=== PATIENT | male | born 1960 | race African-American/Black ===

== ENCOUNTER 2016-04-15 13:10 | Inpatient (IN) | payer OTHER ==
[2016-04-15 13:59] VITALS: BMI 20.2
--- NOTE | 2016-04-15 17:33 | HP ---
CIWA Score - CIWA Score Nausea/Vomitin-Mild Nausea/No Vomiting Muscle Tremors: 4-Moderate,w/Arms Extend Anxiety: 4-Mod. Anxious/Guarded Agitation: 4-Moderately Restless Paroxysmal Sweats: 1-Minimal Palms Moist Orientation: 1-Uncertain about Date Tacttile Disturbances: 0-None Auditory Disturbances: 0-None Visual Disturbances: 0-None Headache: 2-Mild CIWA-Ar Total Score: 17 Admission ROS BHS - HPI Chief Complaint: withdrawal sx Allergies/Adverse Reactions: Allergies Allergy/AdvReac Type Severity Reaction Status Date / Time No Known Allergies Allergy Verified 04/15/16 15:19 History of Present Illness: 56 years old male with long history of alcohol nicotine dependence, hiv denies mental illness, longest sobriety 5 years is admitted to detox Exam Limitations: No Limitations - Ebola screening Have you traveled outside of the country in the last 21 days: No Have you had contact with anyone from an Ebola affected area: No Have you been sick,other than usual withdrawal symptoms: No Do you have a fever: No - Review of Systems Constitutional: Chills, Loss of Appetite, Changes in sleep, Unintentional Wgt. Loss EENT: reports: No Symptoms Reported Respiratory: reports: No Symptoms reported Cardiac: reports: No Symptoms Reported GI: reports: Nausea, Poor Appetite, Poor Fluid Intake, Abdominal cramping : reports: No Symptoms Reported Musculoskeletal: reports: No Symptoms Reported Integumentary: reports: Rash (fungal feet) Neuro: reports: Tremors Endocrine: reports: No Symptoms Reported Hematology: reports: No Symptoms Reported Psychiatric: reports: Judgement Intact, Mood/Affect Appropiate Other Systems: Reviewed and Negative Patient History - Patient Medical History Hx Anemia: No Hx Asthma: No Hx Chronic Obstructive Pulmonary Disease (COPD): No Hx Cancer: No Hx Cardiac Disorders: No Hx Congestive Heart Failure: No Hx Hypertension: No Hx Hypercholesterolemia: No Hx Pacemaker: No HX Cerebrovascular Accident: No Hx Seizures: Yes (denies) Hx Dementia: No Hx Diabetes: No Hx Gastrointestinal Disorders: No Hx Liver Disease: No (has hepatitis b treated x 1 ) Hx Genitourinary Disorders: No Hx Sexually Transmitted Disorders: No Hx Renal Disease (ESRD): No Hx Thyroid Disease: No Hx Human Immunodeficiency Virus (HIV): Yes Hx Hepatitis C: No Hx Depression: Yes (no longer has depression) Hx Suicide Attempt: No Hx Bipolar Disorder: No Hx Schizophrenia: No - Patient Surgical History Past Surgical History: Yes Hx Neurologic Surgery: No Hx Cataract Extraction: No Hx Cardiac Surgery: No Hx Lung Surgery: No Hx Breast Surgery: No Hx Breast Biopsy: No Hx Abdominal Surgery: No Hx Appendectomy: No Hx Cholecystectomy: No Hx Genitourinary Surgery: No Hx Orthopedic Surgery: No Other Surgical History: anal fistula 2006 Anesthesia Reaction: No - PPD History Previous Implant?: No Documented Results: Negative w/o proof Implanted On Prior [facility] Admission?: No PPD to be Administered?: Yes - Reproductive History Patient : No - Smoking Cessation Smoking history: Current every day smoker Have you smoked in the past 12 months: Yes Aproximately how many cigarettes per day: 6 Cigars Per Day: 0 Hx Chewing Tobacco Use: No Initiated information on smoking cessation: Yes 'Breaking Loose' booklet given: 04/15/16 - Substance & Tx. History Hx Alcohol Use: Yes Hx Substance Use: Yes Substance Use Type: Alcohol, Cocaine - Substances Abused Alcohol Route: Oral Frequency: Daily Amount used: 1 pint volka Age of first use: 15 Date of Last Use: 04/15/16 Family Disease History - Family Disease History Family Disease History: Diabetes: Grandparent, Mother, Other: Father () Admission Physical Exam S - Vital Signs Vital Signs: Vital Signs - 24 hr 04/15/16 13:57 Temperature 98.1 F Pulse Rate 89 Respiratory 20 Rate Blood Pressure 124/66 - Physical General Appearance: Yes: Appropriately Dressed, Mild Distress, Thin, Tremorous, Irritable, Sweating, Anxious HEENTM: Yes: Hearing grossly Normal, Normal ENT Inspection, Normocephalic, Normal Voice Respiratory: Yes: Chest Non-Tender, Lungs Clear, Normal Breath Sounds, No Respiratory Distress, No Accessory Muscle Use Neck: Yes: Supple, Trachea in good position Breast: Yes: Breasts Symetrical Cardiology: Yes: Regular Rhythm, Regular Rate, S1, S2 Abdominal: Yes: Non Tender, Soft Genitourinary: Yes: Within Normal Limits Back: Yes: Normal Inspection Musculoskeletal: Yes: full range of Motion, Gait Steady Extremities: Yes: Normal Inspection (dry), Normal Range of Motion, Non-Tender, Tremors Neurological: Yes: Fully Oriented, Alert, Motor Strength 5/5, Normal Mood/Affect , Normal Response Integumentary: Yes: Dry, Warm Lymphatic: Yes: Within Normal Limits - Diagnostic (1) Alcohol dependence with uncomplicated withdrawal Current Visit: Yes Status: Acute (2) Nicotine dependence Current Visit: Yes Status: Acute Qualifiers: Nicotine product type: cigarettes Substance use status: in withdrawal Qualified Code(s): F17.213 - Nicotine dependence, cigarettes, with withdrawal (3) Toenail fungus Current Visit: Yes Status: Acute (4) Weight loss Current Visit: Yes Status: Acute (5) HIV (human immunodeficiency virus infection) Current Visit: Yes Status: Chronic Comment: patient dose not have his own medication with him (6) Neuropathy Current Visit: Yes Status: Chronic Comment: hands (7) Dry skin Current Visit: Yes Status: Acute Comment: eucerin Cleared for Admission [facility] - Detox or Rehab [facility] Level of Care: Medically Managed Detox Regimen/Protocol: Librium [facility] Breath Alcohol Content Breath Alcohol Content: 0 Urine Drug Screen - Results Drug Screen Negative: No Urine Drug Screen Results: JUAN-Cocaine
[2016-04-15] MEDS ORDERED: MAGNESIUM HYDROX 2400MG/30ML ORAL SUSPENSION 30 ML CUP PO PRN (17:39)
[2016-04-15] MEDS ORDERED: diphenhydrAMINE HCL 50 MG CAPSULE PO PRN (17:39)
[2016-04-15] MEDS ORDERED: MAG HYDROX/AL HYDROX/SIMETH 30 ML UNIT-DOSE CUP PO PRN (17:39)
[2016-04-15] MEDS ORDERED: chlordiazePOXIDE HCL 25 MG CAPSULE PO PRN (17:39)
[2016-04-15] MEDS ORDERED: hydrOXYzine PAMOATE 50 MG CAPSULE (FP) PO PRN (17:39)
[2016-04-15] MEDS ORDERED: IBUPROFEN 400 MG TABLET (FP) PO PRN (17:39)
[2016-04-15] MEDS ORDERED: ACETAMINOPHEN 325 MG TABLET (FP) PO PRN (17:39)
[2016-04-15] MEDS ORDERED: MAGNESIUM CITRATE 300 ML BOTTLE PO PRN (17:39)
[2016-04-15] MEDS ORDERED: NICOTINE POLACRILEX 2 MG GUM BC PRN (17:39)
[2016-04-15] MEDS ORDERED: MENTHOL/PHENOL 1 EACH UD MM PRN (17:39)
[2016-04-15] MEDS ORDERED: P-EPHED 60MG/TRIPROLIDI 2.5MG TABLET PO PRN (17:39)
[2016-04-15] MEDS ORDERED: guaiFENesin/D-METHORPHAN HB 10 ML UNIT-DOSE CUPS PO PRN (17:39)
[2016-04-15] MEDS ORDERED: LOPERAMIDE HCL 2 MG CAPSULE PO PRN (17:39)
[2016-04-15] MEDS ORDERED: COLLOIDAL OATMEAL 1 BAR EACH TP PRN (17:52)
[2016-04-15] MEDS: THIAMINE HCL 100 MG TABLET (FP) PO SCH (22:12)
[2016-04-15] MEDS: chlordiazePOXIDE HCL 25 MG CAPSULE PO SCH (22:12)
[2016-04-15] MEDS: CLOTRIMAZOLE 1% CREAM 15 GM TUBE TP SCH (22:13)
[2016-04-15] MEDS: MINERAL OIL/PETROLAT/WATER TOPICAL CREAM 454 GM JAR TP SCH (22:14)
[2016-04-16 03:21] LABS: URINE APPEARANCE CLEAR; URINE BILIRUBIN NEGATIVE (NEGATIVE); URINE BLOOD NEGATIVE (NEGATIVE); URINE COLOR YELLOW; URINE GLUCOSE (UA) NEGATIVE (NEGATIVE); URINE KETONE NEGATIVE (NEGATIVE); URINE LEUK ESTERASE NEGATIVE (NEGATIVE); URINE NITRITE NEGATIVE (NEGATIVE); URINE PROTEIN NEGATIVE (NEGATIVE); URINE UROBILINOGEN NEGATIVE E.U./dl (0.2-1.0)
[2016-04-16] MEDS: chlordiazePOXIDE HCL 25 MG CAPSULE PO SCH ×3 (05:39→22:41)
--- NOTE | 2016-04-16 09:32 | EKG ---
Test Reason : Blood Pressure : / mmHG Vent. Rate : 065 BPM Atrial Rate : 065 BPM P-R Int : 182 ms QRS Dur : 088 ms QT Int : 380 ms P-R-T Axes : -15 -09 -15 degrees QTc Int : 395 ms NORMAL SINUS RHYTHM MODERATE VOLTAGE CRITERIA FOR LVH, MAY BE NORMAL VARIANT EARLY REPOLARIZATION POOR DATA QUALITY, INTERPRETATION MAY BE ADVERSELY AFFECTED ABNORMAL ECG NO PREVIOUS ECGS AVAILABLE Confirmed by ARLENE MOTT, LIUDMILA ([id number]) on 04/16/2016 9:32:10 AM Referred By: Confirmed By:LIUDMILA JACOBS MD
[2016-04-16 10:30] LABS: MCH 29.3 pg (25.7-33.7); MCHC 33.6 g/dl (32.0-35.9); MEAN CELL VOLUME 87.2 fl (80-96); MEAN PLT VOLUME 10.1 fl (7.5-11.1); PLATELET COUNT 139 K/MM3 (134-434); RDW 14.7 % (11.9-15.9); WHITE BLOOD COUNT 6.8 K/mm3 (4.0-10.0)
[2016-04-16] MEDS: PRENATAL VITAMINS W/ FOLIC ACID TABLET (FP) PO SCH (10:40)
[2016-04-16] MEDS: CLOTRIMAZOLE 1% CREAM 15 GM TUBE TP SCH ×2 (10:40→22:41)
[2016-04-16] MEDS: NICOTINE 14 MG/24 HOURS TOPICAL PATCH TD SCH (10:40)
[2016-04-16 11:45] LABS: ALBUMIN 3.8 g/dl (3.4-5.0); ANION GAP 9 (8-16); BILIRUBIN,TOTAL 0.3 mg/dL (0.2-1.0); CALCIUM 9.4 mg/dL (8.5-10.1); CO2 30 mmol/L (21-32); CREATININE 0.8 mg/dL (0.7-1.3); GLUCOSE,RANDOM 83 mg/dL (74-106); SGOT/AST 19 U/L (15-37); SGPT/ALT 28 U/L (12-78); TOT PROT 7.2 g/dl (6.4-8.2)
[2016-04-16 11:46] LABS: ALK PHOS 67 U/L (45-117)
[2016-04-16] MEDS ORDERED: PNEUMOC 13-VAL CONJ-DIP CRM/PF 0.5 ML DISP.SYRIN IM ONE (12:00)
--- NOTE | 2016-04-16 12:16 | PN ---
S CIWA - CIWA Score Nausea/Vomitin-No Nausea/No Vomiting Muscle Tremors: 4-Moderate,w/Arms Extend Anxiety: 3 Agitation: 4-Moderately Restless Paroxysmal Sweats: 3 Orientation: 0-Oriented Tacttile Disturbances: 0-None Auditory Disturbances: 0-None Visual Disturbances: 0-None Headache: 0-None Present CIWA-Ar Total Score: 14 BHS Progress Note (SOAP) Subjective: ANXIETY,TREMORS,SWEATING,INTERRUPTED SLEEP,RESTLESS Objective: 04/16/16 12:15 Vital Signs - 8 hr 04/16/16 04/16/16 06:20 10:50 Temperature 96.6 F L 98.1 F Pulse Rate 79 76 Respiratory 18 18 Rate Blood Pressure 120/77 119/80 Laboratory Tests 04/16/16 04/16/16 04/16/16 02:59 06:10 06:10 WBC 6.8 RBC 4.28 Hgb 12.5 Hct 37.3 MCV 87.2 MCHC 33.6 RDW 14.7 Plt Count 139 MPV 10.1 Sodium 140 Potassium 4.1 Chloride 101 Carbon Dioxide 30 Anion Gap 9 BUN 12 Creatinine 0.8 Creat Clearance w eGFR > 60 Random Glucose 83 Calcium 9.4 Total Bilirubin 0.3 AST 19 ALT 28 Alkaline Phosphatase 67 Total Protein 7.2 Albumin 3.8 Urine Color Yellow Urine Appearance Clear Urine pH 6.0 Ur Specific [place] 1.024 Urine Protein Negative Urine Glucose (UA) Negative Urine Ketones Negative Urine Blood Negative Urine Nitrite Negative Urine Bilirubin Negative Urine Urobilinogen Negative Ur Leukocyte Esterase Negative LABS NOTED Assessment: 04/16/16 12:15 WITHDRAWAL SX. Plan: CONTINUE DETOX
[2016-04-16] MEDS: THIAMINE HCL 100 MG TABLET (FP) PO SCH (22:41)
[2016-04-16] MEDS: MINERAL OIL/PETROLAT/WATER TOPICAL CREAM 454 GM JAR TP SCH (22:42)
[2016-04-17] MEDS: chlordiazePOXIDE HCL 25 MG CAPSULE PO SCH ×3 (05:38→17:21)
--- NOTE | 2016-04-17 09:45 | EKG ---
Test Reason : Blood Pressure : / mmHG Vent. Rate : 064 BPM Atrial Rate : 064 BPM P-R Int : 164 ms QRS Dur : 090 ms QT Int : 368 ms P-R-T Axes : 069 067 072 degrees QTc Int : 379 ms SINUS RHYTHM WITH PREMATURE ATRIAL COMPLEXES INCOMPLETE RBBB Confirmed by LIUDMILA JACOBS MD ([id number]) on 04/17/2016 9:45:10 AM Referred By: Confirmed By:LIUDMILA JACOBS MD
[2016-04-17] MEDS: NICOTINE 14 MG/24 HOURS TOPICAL PATCH TD SCH (10:27)
[2016-04-17] MEDS: PRENATAL VITAMINS W/ FOLIC ACID TABLET (FP) PO SCH (10:27)
[2016-04-17] MEDS: CLOTRIMAZOLE 1% CREAM 15 GM TUBE TP SCH ×2 (10:27→22:33)
--- NOTE | 2016-04-17 14:36 | PN ---
S CIWA - CIWA Score Nausea/Vomitin-Mild Nausea/No Vomiting Muscle Tremors: 4-Moderate,w/Arms Extend Anxiety: 4-Mod. Anxious/Guarded Agitation: 4-Moderately Restless Paroxysmal Sweats: No Perspiration Orientation: 0-Oriented Tacttile Disturbances: 1-Very Mild Itch/Numbness Auditory Disturbances: 0-None Visual Disturbances: 0-None Headache: 2-Mild CIWA-Ar Total Score: 16 BHS Progress Note (SOAP) Subjective: Sweating, nausea, tremor, interrupted sleep Objective: 04/17/16 14:33 Last Vital Signs Temp Pulse Resp BP Pulse Ox 97.0 F L 83 18 110/74 04/17/16 12:50 04/17/16 12:50 04/17/16 12:50 04/17/16 12:50 Laboratory Tests 04/16/16 04/16/16 04/16/16 02:59 06:10 06:10 WBC 6.8 RBC 4.28 Hgb 12.5 Hct 37.3 MCV 87.2 MCHC 33.6 RDW 14.7 Plt Count 139 MPV 10.1 Sodium 140 Potassium 4.1 Chloride 101 Carbon Dioxide 30 Anion Gap 9 BUN 12 Creatinine 0.8 Creat Clearance w eGFR > 60 Random Glucose 83 Calcium 9.4 Total Bilirubin 0.3 AST 19 ALT 28 Alkaline Phosphatase 67 Total Protein 7.2 Albumin 3.8 Urine Color Yellow Urine Appearance Clear Urine pH 6.0 Ur Specific [place] 1.024 Urine Protein Negative Urine Glucose (UA) Negative Urine Ketones Negative Urine Blood Negative Urine Nitrite Negative Urine Bilirubin Negative Urine Urobilinogen Negative Ur Leukocyte Esterase Negative RPR Titer 04/16/16 06:10 WBC RBC Hgb Hct MCV MCHC RDW Plt Count MPV Sodium Potassium Chloride Carbon Dioxide Anion Gap BUN Creatinine Creat Clearance w eGFR Random Glucose Calcium Total Bilirubin AST ALT Alkaline Phosphatase Total Protein Albumin Urine Color Urine Appearance Urine pH Ur Specific [place] Urine Protein Urine Glucose (UA) Urine Ketones Urine Blood Urine Nitrite Urine Bilirubin Urine Urobilinogen Ur Leukocyte Esterase RPR Titer Nonreactive Labs noted Assessment: 04/17/16 14:34 Withdrawal symptoms Plan: Continue detox
[2016-04-17] MEDS: THIAMINE HCL 100 MG TABLET (FP) PO SCH (22:33)
[2016-04-17] MEDS: chlordiazePOXIDE 5 MG CAPSULE PO SCH (22:33)
[2016-04-17] MEDS: MINERAL OIL/PETROLAT/WATER TOPICAL CREAM 454 GM JAR TP SCH (22:34)
[2016-04-18] MEDS: chlordiazePOXIDE 5 MG CAPSULE PO SCH ×3 (05:20→17:14)
--- NOTE | 2016-04-18 09:24 | PN ---
BHS Progress Note (SOAP) Subjective: sweating,interrupted sleep,restless Objective: 04/18/16 09:23 Vital Signs - 8 hr 04/18/16 04/18/16 03:30 06:11 Temperature 97.9 F Pulse Rate 75 Respiratory 18 13 Rate Blood Pressure 113/77 Laboratory Tests 04/16/16 04/16/16 04/16/16 02:59 06:10 06:10 WBC 6.8 RBC 4.28 Hgb 12.5 Hct 37.3 MCV 87.2 MCHC 33.6 RDW 14.7 Plt Count 139 MPV 10.1 Sodium 140 Potassium 4.1 Chloride 101 Carbon Dioxide 30 Anion Gap 9 BUN 12 Creatinine 0.8 Creat Clearance w eGFR > 60 Random Glucose 83 Calcium 9.4 Total Bilirubin 0.3 AST 19 ALT 28 Alkaline Phosphatase 67 Total Protein 7.2 Albumin 3.8 Urine Color Yellow Urine Appearance Clear Urine pH 6.0 Ur Specific [place] 1.024 Urine Protein Negative Urine Glucose (UA) Negative Urine Ketones Negative Urine Blood Negative Urine Nitrite Negative Urine Bilirubin Negative Urine Urobilinogen Negative Ur Leukocyte Esterase Negative RPR Titer 04/16/16 06:10 WBC RBC Hgb Hct MCV MCHC RDW Plt Count MPV Sodium Potassium Chloride Carbon Dioxide Anion Gap BUN Creatinine Creat Clearance w eGFR Random Glucose Calcium Total Bilirubin AST ALT Alkaline Phosphatase Total Protein Albumin Urine Color Urine Appearance Urine pH Ur Specific [place] Urine Protein Urine Glucose (UA) Urine Ketones Urine Blood Urine Nitrite Urine Bilirubin Urine Urobilinogen Ur Leukocyte Esterase RPR Titer Nonreactive labs noted Assessment: 04/18/16 09:24 withdrawal sx. Plan: continue detox
[2016-04-18] MEDS: NICOTINE 14 MG/24 HOURS TOPICAL PATCH TD SCH (10:38)
[2016-04-18] MEDS: PRENATAL VITAMINS W/ FOLIC ACID TABLET (FP) PO SCH (10:38)
[2016-04-18] MEDS: CLOTRIMAZOLE 1% CREAM 15 GM TUBE TP SCH ×2 (10:38→22:07)
[2016-04-18] MEDS: chlordiazePOXIDE HCL 10 MG CAPSULE PO SCH (22:07)
[2016-04-18] MEDS: THIAMINE HCL 100 MG TABLET (FP) PO SCH (22:07)
[2016-04-18] MEDS: MINERAL OIL/PETROLAT/WATER TOPICAL CREAM 454 GM JAR TP SCH (22:07)
[2016-04-19] MEDS: chlordiazePOXIDE HCL 10 MG CAPSULE PO SCH ×2 (05:40→11:32)
--- NOTE | 2016-04-19 09:53 | DS ---
[facility] Detox Discharge Summary Admission Date: 04/15/16 Discharge Date: 04/19/16 - History Present History: Alcohol Dependence Pertinent Past History: HIV infection - Physical Exam Results Vital Signs: Vital Signs Temperature 98.6 F 04/19/16 06:22 Pulse Rate 84 04/19/16 06:22 Respiratory Rate 18 04/19/16 06:22 Blood Pressure 113/74 04/19/16 06:22 O2 Sat by Pulse Oximetry (%) Pertinent Admission Physical Exam Findings: Withdrawal sx. Laboratory Last Values WBC 6.8 K/mm3 (4.0-10.0) 04/16/16 06:10 RBC 4.28 M/mm3 (4.00-5.60) 04/16/16 06:10 Hgb 12.5 GM/dL (11.7-16.9) 04/16/16 06:10 Hct 37.3 % (35.4-49) 04/16/16 06:10 MCV 87.2 fl (80-96) 04/16/16 06:10 MCHC 33.6 g/dl (32.0-35.9) 04/16/16 06:10 RDW 14.7 % (11.9-15.9) 04/16/16 06:10 Plt Count 139 K/MM3 (134-434) 04/16/16 06:10 MPV 10.1 fl (7.5-11.1) 04/16/16 06:10 Sodium 140 mmol/L (136-145) 04/16/16 06:10 Potassium 4.1 mmol/L (3.5-5.1) 04/16/16 06:10 Chloride 101 mmol/L (98-107) 04/16/16 06:10 Carbon Dioxide 30 mmol/L (21-32) 04/16/16 06:10 Anion Gap 9 (8-16) 04/16/16 06:10 BUN 12 mg/dL (7-18) 04/16/16 06:10 Creatinine 0.8 mg/dL (0.7-1.3) 04/16/16 06:10 Creat Clearance w eGFR > 60 (>60) 04/16/16 06:10 Random Glucose 83 mg/dL (74-106) 04/16/16 06:10 Calcium 9.4 mg/dL (8.5-10.1) 04/16/16 06:10 Total Bilirubin 0.3 mg/dL (0.2-1.0) 04/16/16 06:10 AST 19 U/L (15-37) 04/16/16 06:10 ALT 28 U/L (12-78) 04/16/16 06:10 Alkaline Phosphatase 67 U/L (45-117) 04/16/16 06:10 Total Protein 7.2 g/dl (6.4-8.2) 04/16/16 06:10 Albumin 3.8 g/dl (3.4-5.0) 04/16/16 06:10 Urine Color Yellow 04/16/16 02:59 Urine Appearance Clear 04/16/16 02:59 Urine pH 6.0 (5.0-8.0) 04/16/16 02:59 Ur Specific [place] 1.024 (1.001-1.035) 04/16/16 02:59 Urine Protein Negative (NEGATIVE) 04/16/16 02:59 Urine Glucose (UA) Negative (NEGATIVE) 04/16/16 02:59 Urine Ketones Negative (NEGATIVE) 04/16/16 02:59 Urine Blood Negative (NEGATIVE) 04/16/16 02:59 Urine Nitrite Negative (NEGATIVE) 04/16/16 02:59 Urine Bilirubin Negative (NEGATIVE) 04/16/16 02:59 Urine Urobilinogen Negative E.U./dl (0.2-1.0) 04/16/16 02:59 Ur Leukocyte Esterase Negative (NEGATIVE) 04/16/16 02:59 RPR Titer Nonreactive (NONREACTIVE) 04/16/16 06:10 labs noted - Treatment Hospital Course: Detox Protocol Followed, Detoxed Safely, Responded well, Discharged Condition Good, Rehab Referral Accepted - Medication Discharge Medications: Ambulatory Orders Elviteg/Katherin/Emtric/Tenofo Ala [Genvoya Tablet] 1 tablet PO DAILY 04/15/16 Folic Acid 4 mg PO DAILY 04/15/16 Sertraline HCl [Zoloft] 50 mg PO DAILY 04/15/16 Trazodone HCl 50 mg PO HS 04/15/16 Vitamin B Complex 1 tablet PO DAILY 04/15/16 - Diagnosis (1) Alcohol dependence with uncomplicated withdrawal Current Visit: Yes Status: Acute (2) Nicotine dependence Current Visit: Yes Status: Acute Qualifiers: Nicotine product type: cigarettes Substance use status: in withdrawal Qualified Code(s): F17.213 - Nicotine dependence, cigarettes, with withdrawal (3) Toenail fungus Current Visit: Yes Status: Acute (4) HIV (human immunodeficiency virus infection) Current Visit: Yes Status: Chronic - AMA Did Patient Leave Against Medical Advice: No
[2016-04-19] MEDS: PRENATAL VITAMINS W/ FOLIC ACID TABLET (FP) PO SCH (10:20)
[2016-04-19] MEDS: NICOTINE 14 MG/24 HOURS TOPICAL PATCH TD SCH (10:20)
[2016-04-19] MEDS: CLOTRIMAZOLE 1% CREAM 15 GM TUBE TP SCH (10:21)
[2016-04-19 11:42] VITALS: BP 122/73; PULSE 74; TEMP 97
== END 2016-04-19 13:15 | disposition home or self-care (01) | DRG 776 ==
LOC: YASAS 13:10 → Y3N 18:11
PROVIDERS: ADMIT Internal Medicine; ATTEND Internal Medicine
PROC: HZ2ZZZZ Detoxification Services for Substance Abuse Treatment (ICD-10-PCS; principal; 2016-04-19)
DX: F17.213 Nicotine dependence, cigarettes, with withdrawal (principal); Z21 Asymptomatic human immunodeficiency virus [HIV] infection status; B35.1 Tinea unguium; G62.9 Polyneuropathy, unspecified; L85.3 Xerosis cutis; R63.4 Abnormal weight loss; Z68.20 Body mass index [BMI] 20.0-20.9, adult
CPT/HCPCS: 36415; 80053; 81003; 85027; 86593; 90670; 93005; 93010

== ENCOUNTER 2019-10-19 11:45 | Inpatient (IN) | payer OTHER ==
--- NOTE | 2019-10-19 16:21 | BHS.RME ---
Substance Use & Tx History - Substance Use History Alcohol Substance amount: 1 pint of vodka Frequency of use: Daily Substance route: Oral Date of Last Use: 10/18/19 Cocaine-Crack Substance amount: 100$ Frequency of use: Daily Substance route: Smoking Date of Last Use: 10/18/19 - Last Treatment Date of last treatment: [facility] 06/2019 Where was last treatment: Detox Physical/Psych/Mental Status - Behavior Eye Contact: Normal - Cooperativeness Cooperativeness: Cooperative - Thinking Thought Processes: Logical Thought content: Future oriented - Physical Health Problems Is patient presently having any pain?: No Does patient presently have any injuries (include location): No Does patient currently have a fever: No CIWA Nausea/Vomitin Muscle Tremors: 3 Anxiety: 2 Agitation: 2 Paroxysmal Sweats: 1-Minimal Palms Moist Orientation: 0-Oriented Tacttile Disturbances: 1-Very Mild Itch/Numbness Auditory Disturbances: 0-None Visual Disturbances: 0-None Headache: 2-Mild CIWA-Ar Total Score: 13
--- NOTE | 2019-10-19 16:32 | HP ---
CIWA Score Nausea/Vomitin Muscle Tremors: 3 Anxiety: 2 Agitation: 2 Paroxysmal Sweats: 1-Minimal Palms Moist Orientation: 0-Oriented Tacttile Disturbances: 1-Very Mild Itch/Numbness Auditory Disturbances: 0-None Visual Disturbances: 0-None Headache: 2-Mild CIWA-Ar Total Score: 13 - Admission Criteria [facility] Guidelines: Admission for Medically Managed Detox: Requires at least one of the followin. CIWA greater than 12 2. Seizures within the past 24 hours 3. Delirium tremens within the past 24 hours 4. Hallucinations within the past 24 hours 5. Acute intervention needed for co occurring medical disorder 6. Acute intervention needed for co occurring psychiatric disorder 7. Severe withdrawal that cannot be handled at a lower level of care (continued vomiting, continued diarrhea, abnormal vital signs) requiring intravenous medication and/or fluids 8. 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 Infectious Disease: Yes: HIV (since 07/22/1996) Additional Past Medical History: anal fislula in 10/2006 - Past Surgical History Additional Past Surgical History: anal fistula in 10/2006 - Smoking History Smoking history: Current every day smoker Have you smoked in the past 12 months: Yes Aproximately how many cigarettes per day: 10 - Alcohol/Substance Use Hx Alcohol Use: Yes History of Substance Use: reports: Cocaine Date of Last Use: 10/18/19 - Social History Usual Living Arrangement: Yes: Alone Do you think of yourself as: Straight/Heterosexual ADL: Support Services Occupation: disability History of Recent Travel: No Other Social History: unemployed on disability,nicotine dependence,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,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 Admission ROS BHS - HPI Chief Complaint: i need help to stop drining alcohol,crack Allergies/Adverse Reactions: Allergies Allergy/AdvReac Type Severity Reaction Status Date / Time No Known Allergies Allergy Verified 10/19/19 16:59 History of Present Illness: this 59 years old male with alcohol dependence with crack abused,seeking detox Exam Limitations: No Limitations - Ebola screening Have you traveled outside of the country in the last 21 days: No Have you had contact with anyone from an Ebola affected area: No Have you been sick,other than usual withdrawal symptoms: No Do you have a fever: No - Review of Systems Constitutional: Loss of Appetite, Malaise, Night Sweats, Changes in sleep, Weakness EENT: reports: Nose Congestion Respiratory: reports: No Symptoms reported Cardiac: reports: No Symptoms Reported GI: reports: Nausea, Poor Appetite, Poor Fluid Intake : reports: No Symptoms Reported Musculoskeletal: reports: Back Pain, Muscle Pain Integumentary: reports: Dryness Neuro: reports: Headache, Tremors Endocrine: reports: No Symptoms Reported Hematology: reports: No Symptoms Reported Psychiatric: reports: No Sypmtoms Reported, Judgement Intact, Mood/Affect Appropiate, Orientated x3 Other Systems: Reviewed and Negative Patient History - Patient Medical History Hx Anemia: No Hx Asthma: No Hx Chronic Obstructive Pulmonary Disease (COPD): No Hx Cancer: No Hx Cardiac Disorders: No Hx Congestive Heart Failure: No Hx Hypertension: No Hx Hypercholesterolemia: No Hx Pacemaker: No HX Cerebrovascular Accident: No Hx Seizures: No Hx Dementia: No Hx Diabetes: No Hx Gastrointestinal Disorders: No Hx Liver Disease: No Hx Genitourinary Disorders: No Hx Sexually Transmitted Disorders: No Hx Renal Disease (ESRD): No Hx Thyroid Disease: No Hx Human Immunodeficiency Virus (HIV): Yes (since ) Hx Hepatitis C: No Hx Depression: Yes (no longer has depression) Hx Suicide Attempt: No Hx Bipolar Disorder: No Hx Schizophrenia: No Other Medical History: no suicidal,no homicidal - Patient Surgical History Past Surgical History: Yes Hx Neurologic Surgery: No Hx Cataract Extraction: No Hx Cardiac Surgery: No Hx Lung Surgery: No Hx Breast Surgery: No Hx Breast Biopsy: No Hx Abdominal Surgery: No Hx Appendectomy: No Hx Cholecystectomy: No Hx Genitourinary Surgery: No Hx Section: No Hx Orthopedic Surgery: No Other Surgical History: anal fistula 2006 Anesthesia Reaction: No - PPD History Previous Implant?: Yes Documented Results: Negative w/o proof Implanted On Prior R Admission?: Yes Date: 04/17/16 PPD to be Administered?: Yes - Smoking Cessation Smoking history: Current every day smoker Have you smoked in the past 12 months: Yes Aproximately how many cigarettes per day: 10 Cigars Per Day: 0 Hx Chewing Tobacco Use: No Initiated information on smoking cessation: Yes 'Breaking Loose' booklet given: 10/19/19 - Substance & Tx. History Hx Alcohol Use: Yes Hx Substance Use: Yes Substance Use Type: Alcohol, Cocaine Hx Substance Use Treatment: Yes ([facility] in ) - Substances abused Alcohol Substance route: Oral Frequency: Daily Amount used: 1 pint of vodka Age of first use: 14 Date of last use: 10/18/19 Crack Substance route: Smoking Frequency: Daily Amount used: 100$ Age of first use: 26 Date of last use: 11/18/19 Admission Physical Exam [facility] - Vital Signs Vital Signs: t97.8,p82,bp 142/85,r18 - Physical General Appearance: Yes: Moderate Distress, Tremorous, Irritable, Sweating, Anxious HEENTM: Yes: Normal ENT Inspection, RADHA, Pharynx Normal, Other (rash left neck itching) Respiratory: Yes: Lungs Clear, Normal Breath Sounds, No Respiratory Distress Neck: Yes: Within Normal Limits, Supple, Trachea in good position, Other (rash left neck itching) Breast: Yes: Within Normal Limits Cardiology: Yes: Within Normal Limits Abdominal: Yes: Within Normal Limits, Normal Bowel Sounds, Non Tender, Flat, Soft Genitourinary: Yes: Within Normal Limits Back: Yes: Muscle Spasm Musculoskeletal: Yes: Back pain, Muscle Pain Extremities: Yes: Tremors Neurological: Yes: Within Normal Limits, Alert, Motor Strength 5/5 Integumentary: Yes: Dry Lymphatic: Yes: Within Normal Limits - Diagnostic (1) Alcohol dependence with uncomplicated withdrawal Current Visit: No Status: Acute (2) HIV (human immunodeficiency virus infection) Current Visit: No Status: Chronic Comment: patient dose not have his own medication with him (3) Cocaine dependence Current Visit: Yes Status: Acute (4) Weight loss Current Visit: No Status: Acute (5) Syncope Current Visit: Yes Status: Acute Cleared for Admission [facility] - Detox or Rehab [facility] Level of Care: Medically Managed Detox Regimen/Protocol: Librium Inpatient Rehab Admission - Rehab Decision to Admit Inpatient rehab admission?: No
[2019-10-19] MEDS ORDERED: BISMUTH SUBSALICYLATE 524 MG/30 ML UD PO PRN (16:44)
[2019-10-19] MEDS ORDERED: MENTHOL/PHENOL 1 EACH UD MM PRN (16:44)
[2019-10-19] MEDS ORDERED: ACETAMINOPHEN 325 MG TABLET (FP) PO PRN ×2 (16:44)
[2019-10-19] MEDS ORDERED: IBUPROFEN 400 MG TABLET (FP) PO PRN (16:44)
[2019-10-19] MEDS ORDERED: METHOCARBAMOL 500 MG TABLET PO PRN (16:44)
[2019-10-19] MEDS ORDERED: NICOTINE POLACRILEX 2 MG GUM BUC PRN (16:44)
[2019-10-19] MEDS ORDERED: MAG HYDROX/AL HYDROX/SIMETH 30 ML UNIT-DOSE CUP PO PRN (16:44)
[2019-10-19] MEDS ORDERED: MAGNESIUM HYDROX 2400MG/30ML ORAL SUSPENSION 30 ML CUP PO PRN (16:44)
[2019-10-19] MEDS ORDERED: chlordiazePOXIDE HCL 25 MG CAPSULE PO PRN (16:44)
[2019-10-19] MEDS ORDERED: MAGNESIUM CITRATE 300 ML BOTTLE PO PRN (16:44)
[2019-10-19 17:02] VITALS: BMI 16.8
[2019-10-19] MEDS ORDERED: ONDANSETRON *ODT* 4 MG TABLET SL ONE (17:15)
[2019-10-19] MEDS: hydrOXYzine PAMOATE 25 MG CAPSULE (FP) PO SCH ×2 (19:14→23:19)
[2019-10-19] MEDS: chlordiazePOXIDE HCL 25 MG CAPSULE PO SCH (23:19)
[2019-10-19] MEDS: MELATONIN 5 MG TABLETS PO SCH (23:19)
[2019-10-19] MEDS: THIAMINE HCL 100 MG TABLET (FP) PO SCH (23:19)
[2019-10-20] MEDS: chlordiazePOXIDE HCL 25 MG CAPSULE PO SCH ×4 (05:46→22:19)
[2019-10-20] MEDS: hydrOXYzine PAMOATE 25 MG CAPSULE (FP) PO SCH ×5 (05:47→22:20)
[2019-10-20] MEDS: PRENATAL VITAMINS W/ FOLIC ACID TABLET (FP) PO SCH (10:08)
[2019-10-20] MEDS: NICOTINE 7 MG/24 HOURS TOPICAL PATCH TD SCH (10:08)
[2019-10-20 12:31] LABS: HEMATOCRIT 37.5 % (35.4-49); HEMOGLOBIN 12.3 GM/dL (11.7-16.9); MCHC 32.8 g/dl (32.0-35.9); MEAN CELL VOLUME 88.4 fl (80-96); MEAN PLT VOLUME 9.6 fl (7.5-11.1); PLATELET COUNT 127 K/MM3 (134-434); RBC 4.24 M/mm3 (4.00-5.60); RDW 14.1 % (11.9-15.9); WHITE BLOOD COUNT 4.9 K/mm3 (4.0-10.0)
[2019-10-20 12:44] LABS: ALBUMIN 3.2 g/dl (3.4-5.0); BLOOD UREA NITROGEN 10.5 mg/dL (7-18); CALCIUM 8.8 mg/dL (8.5-10.1); POTASSIUM 3.6 mmol/L (3.5-5.1)
[2019-10-20 12:47] LABS: BILIRUBIN,TOTAL 0.3 mg/dL (0.2-1); CREATININE 0.8 mg/dL (0.55-1.3)
--- NOTE | 2019-10-20 14:38 | PN ---
[facility] CIWA - CIWA Score Nausea/Vomitin-Mild Nausea/No Vomiting Muscle Tremors: 2 Anxiety: 2 Agitation: 2 Paroxysmal Sweats: 3 Orientation: 0-Oriented Tacttile Disturbances: 1-Very Mild Itch/Numbness Auditory Disturbances: 0-None Visual Disturbances: 0-None Headache: 0-None Present CIWA-Ar Total Score: 11 BHS Progress Note (SOAP) Subjective: Feels ok, medication is helpful Objective: 10/20/19 14:33 Last Vital Signs Temp Pulse Resp BP Pulse Ox 97.5 F L 74 16 113/72 100 10/20/19 12:25 10/20/19 12:25 10/20/19 12:25 10/20/19 12:25 10/20/19 12:25 Laboratory Tests 10/20/19 10/20/19 10/20/19 07:20 07:20 07:20 WBC 4.9 RBC 4.24 Hgb 12.3 Hct 37.5 MCV 88.4 MCH 29.0 MCHC 32.8 RDW 14.1 Plt Count 127 L MPV 9.6 Sodium 142 Potassium 3.6 Chloride 110 H Carbon Dioxide 30 Anion Gap 2 L BUN 10.5 Creatinine 0.8 Est GFR (CKD-EPI)AfAm 114.93 Est GFR (CKD-EPI)NonAf 99.16 Random Glucose 93 Calcium 8.8 Total Bilirubin 0.3 AST 18 ALT 16 Alkaline Phosphatase 63 Total Protein 7.0 Albumin 3.2 L Syphilis Serology Non-reactive Labs reviewed: plt 127 (low), albumin 3.2 (low) Assessment: 10/20/19 14:38 Withdrawal sxs Noted with thrombocytopenia and hypoalbuminemia Plan: Continue detox Encourage PO water intake Thrombocytopenia: most likely r/t alcoholism, encourage abstinence, follow up with PCP for monitoring Hypoalbuminemia: encourage diet, continue ensure
[2019-10-20] MEDS: THIAMINE HCL 100 MG TABLET (FP) PO SCH (22:19)
[2019-10-20] MEDS: MELATONIN 5 MG TABLETS PO SCH (22:22)
[2019-10-21] MEDS: chlordiazePOXIDE HCL 25 MG CAPSULE PO SCH ×4 (05:49→22:00)
[2019-10-21] MEDS: hydrOXYzine PAMOATE 25 MG CAPSULE (FP) PO SCH (05:49)
[2019-10-21] MEDS ORDERED: hydrOXYzine PAMOATE 25 MG CAPSULE (FP) PO PRN (08:36)
--- NOTE | 2019-10-21 10:39 | PN ---
S CIWA - CIWA Score Nausea/Vomitin-No Nausea/No Vomiting Muscle Tremors: 2 Anxiety: 2 Agitation: 2 Paroxysmal Sweats: 2 Orientation: 0-Oriented Tacttile Disturbances: 0-None Auditory Disturbances: 0-None Visual Disturbances: 0-None Headache: 0-None Present CIWA-Ar Total Score: 8 BHS Progress Note (SOAP) Subjective: sweats interrupted sleep agitation Objective: 10/21/19 10:38 Vital Signs Temperature 97.1 F L 10/21/19 08:57 Pulse Rate 86 10/21/19 08:57 Respiratory Rate 18 10/21/19 08:57 Blood Pressure 107/70 10/21/19 08:57 O2 Sat by Pulse Oximetry (%) 100 10/21/19 05:34 Laboratory Tests 10/19/19 10/20/19 10/20/19 17:20 07:20 07:20 WBC 4.9 RBC 4.24 Hgb 12.3 Hct 37.5 MCV 88.4 MCH 29.0 MCHC 32.8 RDW 14.1 Plt Count 127 L MPV 9.6 Sodium Potassium Chloride Carbon Dioxide Anion Gap BUN Creatinine Est GFR (CKD-EPI)AfAm Est GFR (CKD-EPI)NonAf Random Glucose Calcium Total Bilirubin AST ALT Alkaline Phosphatase Total Protein Albumin Syphilis Serology Non-reactive COVID-19 ([facility]GGIE) Not detected 10/20/19 07:20 WBC RBC Hgb Hct MCV MCH MCHC RDW Plt Count MPV Sodium 142 Potassium 3.6 Chloride 110 H Carbon Dioxide 30 Anion Gap 2 L BUN 10.5 Creatinine 0.8 Est GFR (CKD-EPI)AfAm 114.93 Est GFR (CKD-EPI)NonAf 99.16 Random Glucose 93 Calcium 8.8 Total Bilirubin 0.3 AST 18 ALT 16 Alkaline Phosphatase 63 Total Protein 7.0 Albumin 3.2 L Syphilis Serology COVID-19 (REGGIE) labs noted ambulating no acute distress Assessment: 10/21/19 10:39 withdrawals Plan: continue detox increase fluids
[2019-10-21] MEDS: NICOTINE 7 MG/24 HOURS TOPICAL PATCH TD SCH (10:59)
[2019-10-21] MEDS: PRENATAL VITAMINS W/ FOLIC ACID TABLET (FP) PO SCH (11:00)
[2019-10-21] MEDS ORDERED: BICTEGRAV/EMTRICIT/TENOFOV (BIKTARVY) 50-200-25 MG TABLET PO SCH (14:00)
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
[2019-10-21] MEDS: THIAMINE HCL 100 MG TABLET (FP) PO SCH (22:00)
[2019-10-21] MEDS: MELATONIN 5 MG TABLETS PO SCH (22:00)
[2019-10-22] MEDS ORDERED: chlordiazePOXIDE HCL 10 MG CAPSULE PO PRN
[2019-10-22] MEDS ORDERED: chlordiazePOXIDE HCL 10 MG CAPSULE PO SCH (05:00)
--- NOTE | 2019-10-22 08:59 | DS ---
[facility] Detox Discharge Summary Admission Date: 10/19/19 Discharge Date: 10/22/19 - History Present History: Cocaine Dependence - Physical Exam Results Vital Signs: Vital Signs Temperature 97.5 F L 10/22/19 05:25 Pulse Rate 63 10/22/19 05:25 Respiratory Rate 20 10/22/19 05:25 Blood Pressure 104/65 10/22/19 05:25 O2 Sat by Pulse Oximetry (%) 98 10/22/19 05:25 Pertinent Admission Physical Exam Findings: Laboratory Tests 10/19/19 10/20/19 10/20/19 17:20 07:20 07:20 WBC 4.9 RBC 4.24 Hgb 12.3 Hct 37.5 MCV 88.4 MCH 29.0 MCHC 32.8 RDW 14.1 Plt Count 127 L MPV 9.6 Sodium Potassium Chloride Carbon Dioxide Anion Gap BUN Creatinine Est GFR (CKD-EPI)AfAm Est GFR (CKD-EPI)NonAf Random Glucose Calcium Total Bilirubin AST ALT Alkaline Phosphatase Total Protein Albumin Syphilis Serology Non-reactive COVID-19 (REGGIE) Not detected 10/20/19 07:20 WBC RBC Hgb Hct MCV MCH MCHC RDW Plt Count MPV Sodium 142 Potassium 3.6 Chloride 110 H Carbon Dioxide 30 Anion Gap 2 L BUN 10.5 Creatinine 0.8 Est GFR (CKD-EPI)AfAm 114.93 Est GFR (CKD-EPI)NonAf 99.16 Random Glucose 93 Calcium 8.8 Total Bilirubin 0.3 AST 18 ALT 16 Alkaline Phosphatase 63 Total Protein 7.0 Albumin 3.2 L Syphilis Serology COVID-19 (REGGIE) - Treatment Hospital Course: Detox Protocol Followed, Detoxed Safely, Responded well, Discharged Condition Good, Rehab Referral Accepted - Medication Discharge Medications: Ambulatory Orders Sertraline HCl [Zoloft] 50 mg PO DAILY 04/15/16 traZODone HCL [Trazodone HCl] 50 mg PO HS 04/15/16 Biktarvy 50-200-25 mg Tablet 50 - 200 mg PO DAILY 10/19/19 - Diagnosis (1) Cocaine dependence Current Visit: Yes Status: Chronic Qualifiers: Substance use status: uncomplicated Qualified Code(s): F14.20 - Cocaine dependence, uncomplicated (2) Syncope Current Visit: Yes Status: Acute (3) Alcohol dependence with uncomplicated withdrawal Current Visit: No Status: Resolved (4) Nicotine dependence Current Visit: Yes Status: Chronic Qualifiers: Nicotine product type: cigarettes Substance use status: uncomplicated Qualified Code(s): F17.210 - Nicotine dependence, cigarettes, uncomplicated (5) HIV (human immunodeficiency virus infection) Current Visit: Yes Status: Chronic Qualifiers: HIV symptom status: unspecified Qualified Code(s): B20 - Human immunodeficiency virus [HIV] disease - AMA Did Patient Leave Against Medical Advice: No
--- NOTE | 2019-10-22 09:11 | PN ---
[facility] Progress Note Note: pt is not showing any s/s of withdrawals. Pt states he doesn't drink alcohol and only said that to get into rehab. Pt was made aware and there was no need to be in detox for rehab admission. Pt was given the opportunity to go to rehab today and is interested. Pt will be d/c today and go to rehab today.
[2019-10-22 09:38] VITALS: BP 117/76; PULSE 85; TEMP 96.9
[2019-10-22] MEDS ORDERED: BICTEGRAV/EMTRICIT/TENOFOV (BIKTARVY) 50-200-25 MG TABLET PO SCH (10:00)
[2019-10-22] MEDS: PRENATAL VITAMINS W/ FOLIC ACID TABLET (FP) PO SCH (10:23)
[2019-10-22] MEDS: NICOTINE 7 MG/24 HOURS TOPICAL PATCH TD SCH (10:24)
[2019-10-23] MEDS ORDERED: chlordiazePOXIDE HCL 10 MG CAPSULE PO SCH (05:00)
[2019-10-24] MEDS ORDERED: chlordiazePOXIDE HCL 10 MG CAPSULE PO ONE (05:00)
== END 2019-10-22 11:26 | disposition other institution (70) | DRG 774 ==
LOC: YASAS 11:45 → Y6N 17:04
PROVIDERS: ADMIT Allergy & Immunology; ATTEND Allergy & Immunology
PROC: HZ2ZZZZ Detoxification Services for Substance Abuse Treatment (ICD-10-PCS; principal; 2019-10-19)
DX: F10.230 Alcohol dependence with withdrawal, uncomplicated (principal); F14.20 Cocaine dependence, uncomplicated; F17.210 Nicotine dependence, cigarettes, uncomplicated; Z21 Asymptomatic human immunodeficiency virus [HIV] infection status; D69.6 Thrombocytopenia, unspecified; R77.0 Abnormality of albumin; R21 Rash and other nonspecific skin eruption; R63.4 Abnormal weight loss; Z56.0 Unemployment, unspecified
CPT/HCPCS: 36415; 80053; 85027; 86780; Q0162; U0003

== ENCOUNTER 2020-05-09 19:43 | Inpatient (IN) | payer OTHER ==
[2020-05-09 20:11] VITALS: BMI 17.6
[2020-05-09] MEDS ORDERED: guaiFENesin 200 MG/10 ML 10 ML UNIT-DOSE CUPS PO PRN (22:42)
[2020-05-09] MEDS ORDERED: MAGNESIUM HYDROX 2400MG/30ML ORAL SUSPENSION 30 ML CUP PO PRN (22:42)
[2020-05-09] MEDS ORDERED: LOPERAMIDE HCL 2 MG CAPSULE PO PRN (22:42)
[2020-05-09] MEDS ORDERED: NICOTINE POLACRILEX 2 MG GUM BC PRN (22:42)
[2020-05-09] MEDS ORDERED: MAG HYDROX/AL HYDROX/SIMETH 30 ML UNIT-DOSE CUP PO PRN (22:42)
[2020-05-09] MEDS ORDERED: IBUPROFEN 400 MG TABLET (FP) PO PRN (22:42)
[2020-05-09] MEDS ORDERED: ACETAMINOPHEN 325 MG TABLET (FP) PO PRN (22:42)
[2020-05-09] MEDS ORDERED: MAGNESIUM CITRATE 300 ML BOTTLE PO PRN (22:42)
[2020-05-09] MEDS ORDERED: P-EPHED 60MG/TRIPROLIDI 2.5MG TABLET PO PRN (22:42)
[2020-05-09] MEDS ORDERED: MENTHOL/PHENOL 1 EACH UD MM PRN (22:42)
[2020-05-09] MEDS: MELATONIN 5 MG TABLETS PO SCH (23:32)
[2020-05-10] MEDS: PRENATAL VITAMINS W/ FOLIC ACID TABLET (FP) PO SCH (09:45)
[2020-05-10] MEDS: GABAPENTIN 300 MG CAPSULE PO SCH ×2 (09:45→21:14)
[2020-05-10] MEDS: NICOTINE 21 MG/24 HOURS TOPICAL PATCH TD SCH (09:45)
[2020-05-10] MEDS ORDERED: FLU VACCINE (FLULAVAL) PF 60 MCG/0.5 ML SYRINGE 2020-2021 IM ONE (12:00)
[2020-05-10] MEDS: HYDROCORTISONE 1% TOPICAL OINT 30 GM TUBE TP SCH ×2 (12:11→21:14)
[2020-05-10] MEDS: BICTEGRAV/EMTRICIT/TENOFOV (BIKTARVY) 50-200-25 MG TABLET PO SCH (12:11)
[2020-05-10] MEDS: THIAMINE HCL 100 MG TABLET (FP) PO SCH (21:14)
[2020-05-10] MEDS: MELATONIN 5 MG TABLETS PO SCH (21:14)
[2020-05-11] MEDS: PRENATAL VITAMINS W/ FOLIC ACID TABLET (FP) PO SCH (09:57)
[2020-05-11] MEDS: GABAPENTIN 300 MG CAPSULE PO SCH ×2 (09:57→21:26)
[2020-05-11] MEDS: NICOTINE 21 MG/24 HOURS TOPICAL PATCH TD SCH (09:58)
[2020-05-11] MEDS: BICTEGRAV/EMTRICIT/TENOFOV (BIKTARVY) 50-200-25 MG TABLET PO SCH (09:58)
[2020-05-11] MEDS: HYDROCORTISONE 1% TOPICAL OINT 30 GM TUBE TP SCH ×2 (09:59→21:25)
[2020-05-11 12:15] LABS: POTASSIUM 4.9 mmol/L (3.5-5.1)
[2020-05-11 12:18] LABS: CALCIUM 8.9 mg/dL (8.5-10.1)
[2020-05-11 12:20] LABS: ALBUMIN 3.4 g/dl (3.4-5.0); BLOOD UREA NITROGEN 15.4 mg/dL (7-18)
[2020-05-11 12:22] LABS: CREATININE 0.6 mg/dL (0.55-1.3)
[2020-05-11] MEDS ORDERED: PT OWN MED DRAWER 7, Y5N ONE (12:23)
[2020-05-11 12:24] LABS: BILIRUBIN,TOTAL 0.3 mg/dL (0.2-1); TOT PROT 7.8 g/dl (6.4-8.2)
[2020-05-11 12:26] LABS: HEMOGLOBIN 12.8 GM/dL (11.7-16.9); MCH 28.9 pg (25.7-33.7); MCHC 32.9 g/dl (32.0-35.9); MEAN CELL VOLUME 87.8 fl (80-96); MEAN PLT VOLUME 9.6 fl (7.5-11.1); PLATELET COUNT 156 K/MM3 (134-434); RBC 4.44 M/mm3 (4.00-5.60); RDW 15.3 % (11.9-15.9); WHITE BLOOD COUNT 5.7 K/mm3 (4.0-10.0)
[2020-05-11] MEDS: THIAMINE HCL 100 MG TABLET (FP) PO SCH (21:26)
[2020-05-11] MEDS: MELATONIN 5 MG TABLETS PO SCH (21:26)
[2020-05-12] MEDS: PRENATAL VITAMINS W/ FOLIC ACID TABLET (FP) PO SCH (09:54)
[2020-05-12] MEDS: HYDROCORTISONE 1% TOPICAL OINT 30 GM TUBE TP SCH ×2 (09:54→21:26)
[2020-05-12] MEDS: BICTEGRAV/EMTRICIT/TENOFOV (BIKTARVY) 50-200-25 MG TABLET PO SCH (09:54)
[2020-05-12] MEDS: NICOTINE 21 MG/24 HOURS TOPICAL PATCH TD SCH (09:54)
[2020-05-12] MEDS: GABAPENTIN 300 MG CAPSULE PO SCH ×2 (09:54→21:26)
[2020-05-12] MEDS: MELATONIN 5 MG TABLETS PO SCH (21:26)
[2020-05-12] MEDS: THIAMINE HCL 100 MG TABLET (FP) PO SCH (21:26)
[2020-05-13] MEDS: BICTEGRAV/EMTRICIT/TENOFOV (BIKTARVY) 50-200-25 MG TABLET PO SCH (07:54)
[2020-05-13] MEDS: PRENATAL VITAMINS W/ FOLIC ACID TABLET (FP) PO SCH (10:04)
[2020-05-13] MEDS: NICOTINE 21 MG/24 HOURS TOPICAL PATCH TD SCH (10:04)
[2020-05-13] MEDS: GABAPENTIN 300 MG CAPSULE PO SCH ×2 (10:04→22:00)
[2020-05-13] MEDS: HYDROCORTISONE 1% TOPICAL OINT 30 GM TUBE TP SCH ×2 (10:05→22:01)
[2020-05-13 16:14] LABS: PH,URINE 5.5 (5.0-8.0); URINE APPEARANCE CLEAR; URINE BILIRUBIN NEGATIVE (NEGATIVE); URINE COLOR YELLOW; URINE GLUCOSE (UA) NEGATIVE (NEGATIVE); URINE KETONE NEGATIVE (NEGATIVE); URINE LEUK ESTERASE NEGATIVE (NEGATIVE); URINE NITRITE NEGATIVE (NEGATIVE); URINE PROTEIN NEGATIVE (NEGATIVE); URINE UROBILINOGEN 0.2 mg/dL (0.2-1.0)
[2020-05-13] MEDS: THIAMINE HCL 100 MG TABLET (FP) PO SCH (22:00)
[2020-05-13] MEDS: MELATONIN 5 MG TABLETS PO SCH (22:00)
[2020-05-14] MEDS: BICTEGRAV/EMTRICIT/TENOFOV (BIKTARVY) 50-200-25 MG TABLET PO SCH (07:06)
[2020-05-14] MEDS: PRENATAL VITAMINS W/ FOLIC ACID TABLET (FP) PO SCH (10:08)
[2020-05-14] MEDS: GABAPENTIN 300 MG CAPSULE PO SCH ×2 (10:08→21:30)
[2020-05-14] MEDS: NICOTINE 21 MG/24 HOURS TOPICAL PATCH TD SCH (10:09)
[2020-05-14] MEDS: HYDROCORTISONE 1% TOPICAL OINT 30 GM TUBE TP SCH ×2 (10:09→21:29)
[2020-05-14] MEDS: THIAMINE HCL 100 MG TABLET (FP) PO SCH (21:30)
[2020-05-14] MEDS: MELATONIN 5 MG TABLETS PO SCH (21:30)
[2020-05-15] MEDS: BICTEGRAV/EMTRICIT/TENOFOV (BIKTARVY) 50-200-25 MG TABLET PO SCH (07:16)
[2020-05-15] MEDS: NICOTINE 21 MG/24 HOURS TOPICAL PATCH TD SCH (09:55)
[2020-05-15] MEDS: HYDROCORTISONE 1% TOPICAL OINT 30 GM TUBE TP SCH ×2 (09:55→21:58)
[2020-05-15] MEDS: PRENATAL VITAMINS W/ FOLIC ACID TABLET (FP) PO SCH (09:55)
[2020-05-15] MEDS: GABAPENTIN 300 MG CAPSULE PO SCH ×2 (09:55→21:30)
[2020-05-15] MEDS: THIAMINE HCL 100 MG TABLET (FP) PO SCH (21:30)
[2020-05-15] MEDS: MELATONIN 5 MG TABLETS PO SCH (21:59)
[2020-05-16] MEDS: BICTEGRAV/EMTRICIT/TENOFOV (BIKTARVY) 50-200-25 MG TABLET PO SCH (07:11)
[2020-05-16] MEDS: GABAPENTIN 300 MG CAPSULE PO SCH ×2 (10:14→21:33)
[2020-05-16] MEDS: PRENATAL VITAMINS W/ FOLIC ACID TABLET (FP) PO SCH (10:14)
[2020-05-16] MEDS: NICOTINE 21 MG/24 HOURS TOPICAL PATCH TD SCH (10:14)
[2020-05-16] MEDS: HYDROCORTISONE 1% TOPICAL OINT 30 GM TUBE TP SCH ×2 (10:14→21:34)
[2020-05-16] MEDS: MELATONIN 5 MG TABLETS PO SCH (21:34)
[2020-05-16] MEDS: THIAMINE HCL 100 MG TABLET (FP) PO SCH (21:34)
[2020-05-17] MEDS: BICTEGRAV/EMTRICIT/TENOFOV (BIKTARVY) 50-200-25 MG TABLET PO SCH (07:13)
[2020-05-17] MEDS: GABAPENTIN 300 MG CAPSULE PO SCH ×2 (11:16→21:51)
[2020-05-17] MEDS: HYDROCORTISONE 1% TOPICAL OINT 30 GM TUBE TP SCH ×2 (11:16→21:50)
[2020-05-17] MEDS: NICOTINE 21 MG/24 HOURS TOPICAL PATCH TD SCH (11:17)
[2020-05-17] MEDS: PRENATAL VITAMINS W/ FOLIC ACID TABLET (FP) PO SCH (12:34)
[2020-05-17] MEDS: MELATONIN 5 MG TABLETS PO SCH (21:50)
[2020-05-17] MEDS: THIAMINE HCL 100 MG TABLET (FP) PO SCH (21:51)
[2020-05-18 07:26] VITALS: BP 126/84; PULSE 76; TEMP 97.3
[2020-05-18] MEDS: BICTEGRAV/EMTRICIT/TENOFOV (BIKTARVY) 50-200-25 MG TABLET PO SCH (08:42)
[2020-05-18] MEDS: NICOTINE 21 MG/24 HOURS TOPICAL PATCH TD SCH (09:25)
[2020-05-18] MEDS: PRENATAL VITAMINS W/ FOLIC ACID TABLET (FP) PO SCH (09:25)
[2020-05-18] MEDS: GABAPENTIN 300 MG CAPSULE PO SCH (09:25)
[2020-05-18] MEDS: HYDROCORTISONE 1% TOPICAL OINT 30 GM TUBE TP SCH (09:26)
== END 2020-05-18 10:00 | disposition home or self-care (01) | DRG 772 ==
LOC: YASAS 19:43 → Y5N 05-10 00:40
PROVIDERS: ADMIT Allergy & Immunology; ATTEND Allergy & Immunology
PROC: HZ42ZZZ Group Counseling for Substance Abuse Treatment, Cognitive-Behavioral (ICD-10-PCS; principal; 2020-05-10)
DX: F10.20 Alcohol dependence, uncomplicated (principal); F14.20 Cocaine dependence, uncomplicated; F17.210 Nicotine dependence, cigarettes, uncomplicated; Z21 Asymptomatic human immunodeficiency virus [HIV] infection status; G62.9 Polyneuropathy, unspecified; J45.20 Mild intermittent asthma, uncomplicated; L40.9 Psoriasis, unspecified; L30.9 Dermatitis, unspecified; M41.9 Scoliosis, unspecified; Z86.11 Personal history of tuberculosis; Z98.890 Other specified postprocedural states
CPT/HCPCS: 36415; 80053; 81003; 85027; 86780; 93005; 93010; C9803; G0008; Q2036; U0003

== ENCOUNTER 2020-08-29 15:19 | Inpatient (IN) | payer OTHER ==
[2020-08-29 15:47] VITALS: BMI 18.3
[2020-08-29] MEDS ORDERED: IBUPROFEN 400 MG TABLET (FP) PO PRN (16:52)
[2020-08-29] MEDS ORDERED: MAGNESIUM CITRATE 300 ML BOTTLE PO PRN (16:52)
[2020-08-29] MEDS ORDERED: BISMUTH SUBSALICYLATE 524 MG/30 ML PO PRN (16:52)
[2020-08-29] MEDS ORDERED: METHOCARBAMOL 500 MG TABLET PO PRN (16:52)
[2020-08-29] MEDS ORDERED: ACETAMINOPHEN 325 MG TABLET (FP) PO PRN ×2 (16:52)
[2020-08-29] MEDS ORDERED: MAG HYDROX/AL HYDROX/SIMETH 30 ML UNIT-DOSE CUP PO PRN (16:52)
[2020-08-29] MEDS ORDERED: ONDANSETRON *ODT* 4 MG TABLET SL PRN (16:52)
[2020-08-29] MEDS ORDERED: NICOTINE POLACRILEX 2 MG GUM BUC PRN (16:52)
[2020-08-29] MEDS ORDERED: MAGNESIUM HYDROX 2400MG/30ML ORAL SUSPENSION 30 ML CUP PO PRN (16:52)
[2020-08-29] MEDS ORDERED: MENTHOL/PHENOL 1 EACH UD MM PRN (16:52)
[2020-08-29] MEDS: hydrOXYzine PAMOATE 25 MG CAPSULE (FP) PO SCH ×2 (18:12→22:28)
[2020-08-29] MEDS ORDERED: MELATONIN 5 MG TABLETS PO SCH (22:00)
[2020-08-29] MEDS ORDERED: THIAMINE HCL 100 MG TABLET (FP) PO SCH (22:00)
[2020-08-30] MEDS: hydrOXYzine PAMOATE 25 MG CAPSULE (FP) PO SCH ×3 (07:16→14:49)
[2020-08-30] MEDS ORDERED: BICTEGRAV/EMTRICIT/TENOFOV (BIKTARVY) 50-200-25 MG TABLET PO SCH (08:00)
[2020-08-30 09:28] VITALS: BP 133/85; PULSE 82; TEMP 96.9
[2020-08-30 09:47] LABS: HEMATOCRIT 38.1 % (35.4-49); HEMOGLOBIN 12.4 GM/dL (11.7-16.9); MCHC 32.5 g/dl (32.0-35.9); MEAN CELL VOLUME 86.1 fl (80-96); MEAN PLT VOLUME 9.4 fl (7.5-11.1); PLATELET COUNT 132 K/MM3 (134-434); RBC 4.43 M/mm3 (4.00-5.60); RDW 14.8 % (11.9-15.9); WHITE BLOOD COUNT 5.4 K/mm3 (4.0-10.0)
[2020-08-30 09:54] LABS: BLOOD UREA NITROGEN 8.9 mg/dL (7-18); CALCIUM 8.4 mg/dL (8.5-10.1)
[2020-08-30 09:57] LABS: CREATININE 0.5 mg/dL (0.55-1.3)
[2020-08-30 09:58] LABS: BILIRUBIN,TOTAL 0.3 mg/dL (0.2-1); TOT PROT 6.8 g/dl (6.4-8.2)
[2020-08-30] MEDS ORDERED: PRENATAL VITAMINS W/ FOLIC ACID TABLET (FP) PO SCH (10:00)
[2020-08-30] MEDS ORDERED: NICOTINE 7 MG/24 HOURS TOPICAL PATCH TD SCH (10:00)
== END 2020-08-30 14:50 | disposition home or self-care (01) | DRG 774 ==
LOC: YASAS 15:19 → Y3N 16:47 → UNDOADMIN 16:47 → UNDODISIN 08-30 14:50
PROVIDERS: ADMIT Allergy & Immunology; ATTEND Allergy & Immunology
PROC: HZ2ZZZZ Detoxification Services for Substance Abuse Treatment (ICD-10-PCS; principal; 2020-08-29)
DX: F10.20 Alcohol dependence, uncomplicated (principal); F14.20 Cocaine dependence, uncomplicated; F17.210 Nicotine dependence, cigarettes, uncomplicated; Z21 Asymptomatic human immunodeficiency virus [HIV] infection status; G62.9 Polyneuropathy, unspecified; J45.20 Mild intermittent asthma, uncomplicated; R63.4 Abnormal weight loss; Z68.1 Body mass index [BMI] 19.9 or less, adult; Z86.11 Personal history of tuberculosis
CPT/HCPCS: 36415; 80053; 85027; 86780; C9803; U0003; U0005